=== PATIENT | male | born 1975 | race Hispanic/Latino ===

== ENCOUNTER 2018-11-22 20:37 | Emergency (ER) | payer SELFPAY ==
[2018-11-22] MEDS ORDERED: NA CHLORIDE 0.9% 1,000 ML ONE (22:15)
[2018-11-22] MEDS ORDERED: ONDANSETRON 4 MG/2 ML VIAL ONE (22:15)
[2018-11-22 22:24] LABS: Absolute Lymphocytes (CBC) 0.3 K/uL (0.7-4.9); Absolute Monocytes 0.6 K/uL (0.1-1.3); Basophils % 0.3 % (0-1.3); Hematocrit 43.6 % (39.6-49.0); Lymphocytes % 4.8 % (15.3-44.8); MPV 8.1 fL (7.6-11.3); Monocytes % 8.1 % (3.3-12.3); RBC Red Blood Cell Count 5.25 M/uL (4.33-5.43)
[2018-11-22] MEDS ORDERED: ACETAMINOPHEN 500 MG TAB ONE (23:23)
[2018-11-22 23:36] LABS: Albumin 4.1 g/dL (3.4-5.0); Bilirubin Direct 0.3 mg/dL (0-0.2); Bilirubin Total 0.8 mg/dL (0.2-1.0); Potassium 3.5 mmol/L (3.5-5.1); Protein, Total 8.1 g/dL (6.4-8.2)
[2018-11-22 23:46] LABS: Blood Morphology Comment NOT SEEN (NOT SEEN); Platelet Estimate ADEQ
--- NOTE | 2018-11-23 02:08 | ER ---
Nurse's Notes [facility] Unit Name: Gee Toure Age: 43 yrs Sex: Male : 1975 Arrival Date: 11/22/2018 Time: 20:42 Bed 8 Private MD: Diagnosis: Vomiting;Abnormal results of liver function studies Presentation: 11/22 20:44 Presenting complaint: Friend states: "he has been having a fever and puking and very jd3 nauseous and he says his hole body hurts all over.". Transition of care: patient was not received from another setting of care. Onset of symptoms was November 22, 2018. Risk Assessment: Do you want to hurt yourself or someone else? Patient reports no desire to harm self or others. Initial Sepsis Screen: Does the patient meet any 2 criteria? HR > 90 bpm. No. Patient's initial sepsis screen is negative. Does the patient have a suspected source of infection? No. Patient's initial sepsis screen is negative. Care prior to arrival: None. 20:44 Method Of Arrival: Ambulatory jd3 20:44 Acuity: FELICIA 3 jd3 Historical: - Allergies: 20:46 No Known Allergies; jd3 - Home Meds: 20:46 None [Active]; jd3 - PMHx: 20:46 None; jd3 - PSHx: 20:46 None; jd3 - Immunization history:: Adult Immunizations unknown. - Social history:: Smoking status: Patient/guardian denies using tobacco. - Ebola Screening: : Patient negative for fever greater than or equal to 101.5 degrees Fahrenheit, and additional compatible Ebola Virus Disease symptoms. Screenin:22 Abuse screen: Denies threats or abuse. Denies injuries from another. Nutritional ao screening: No deficits noted. Tuberculosis screening: No symptoms or risk factors identified. Fall Risk None identified. Assessment: 21:30 General: Appears in no apparent distress. comfortable, Behavior is calm, cooperative, ao appropriate for age. Pain: Complains of pain in abdomen. Neuro: Level of Consciousness is awake, alert, obeys commands, Oriented to person, place, time, situation, Appropriate for age Moves all extremities. Full function Speech is normal, Facial symmetry appears normal. Cardiovascular: Capillary refill < 3 seconds Patient's skin is warm and dry. Respiratory: Airway is patent Respiratory effort is even, unlabored, Respiratory pattern is regular, symmetrical. GI: Abdomen is non-distended. GI: Reports nausea, vomiting. : No signs and/or symptoms were reported regarding the genitourinary system. EENT: No signs and/or symptoms were reported regarding the EENT system. Derm: Skin is intact, Skin is pink, warm \\T\\ dry. normal, Skin temperature is warm. Musculoskeletal: Circulation, motion, and sensation intact. Range of motion:. 22:30 Reassessment: Patient appears in no apparent distress at this time. Patient and/or ao family updated on plan of care and expected duration. Pain level reassessed. Patient is alert, oriented x 3, equal unlabored respirations, skin warm/dry/pink. 23:14 Reassessment: Notified Dr Javier of unchanging temperature and receive an order for ao Tylenol 1 Gm. 11/23 00:28 Reassessment: Patient appears in no apparent distress at this time. Patient and/or ao family updated on plan of care and expected duration. Pain level reassessed. Patient under no distress. Waiting on Dispo orders. 01:51 Reassessment: Patient appears in no apparent distress at this time. No changes from jd3 previously documented assessment. Patient and/or family updated on plan of care and expected duration. Pain level reassessed. Patient is alert, oriented x 3, equal unlabored respirations, skin warm/dry/pink. 02:26 Reassessment: Patient DC home. Patient agree with POC and to follow up with PCP. ao Vital Signs: 11/22 20:47 BP 148 / 97; Pulse 140; Resp 18 S; Temp 100.4(O); Pulse Ox 97% on R/A; Weight 81.65 kg jd3 (R); Height 5 ft. 6 in. (167.64 cm) (R); Pain 8/10; 22:21 BP 136 / 102; Pulse 121; Resp 20; Pulse Ox 98% on R/A; Pain 0/10; ao 22:30 BP 140 / 92; Pulse 105; Resp 18; Temp 100.5(O); Pulse Ox 98% on R/A; Pain 0/10; ao 11/23 00:28 BP 132 / 84; Pulse 88; Resp 18; Temp 99.5; Pulse Ox 97% on R/A; Pain 0/10; ao 01:52 BP 126 / 86; Pulse 81; Resp 21 S; Pulse Ox 97% on R/A; jd3 11/22 20:47 Body Mass Index 29.05 (81.65 kg, 167.64 cm) jd3 ED Course: 11/22 20:42 Patient arrived in ED. es 20:45 Triage completed. jd3 20:48 Arm band placed on. jd3 21:52 Gutierrez Javier MD is Attending Physician. gs 22:02 Evans Metz RN is Primary Nurse. ao 22:18 Inserted saline lock: 20 gauge in right forearm, using aseptic technique. Blood oe collected. 22:22 Patient has correct armband on for positive identification. monitoring manager on. Pulse ao ox on. NIBP on. 22:34 Troponin (emerg Dept Use Only) Sent. mw2 22:56 XRAY CXR (1 view) In Process Unspecified. [facility] 11/23 02:07 Dave Werner MD is Referral Physician. 02:25 No provider procedures requiring assistance completed. IV discontinued, intact, ao bleeding controlled, No redness/swelling at site. Pressure dressing applied. Administered Medications: 11/22 22:22 Drug: NS 0.9% 1000 ml Route: IV; Rate: 1 bolus; Site: right forearm; ao 11/23 00:00 Follow up: IV Status: Completed infusion; IV Intake: 1000ml ao 11/22 22:23 Drug: Zofran 4 mg Route: IVP; Site: right forearm; ao 11/23 03:42 Follow up: Response: No adverse reaction ao 11/22 23:16 Drug: Tylenol 1000 mg Route: PO; ao 11/23 03:42 Follow up: Response: No adverse reaction ao Intake: 00:00 IV: 1000ml; Total: 1000ml. ao Outcome: 02:07 Discharge ordered by . 02:26 Discharged to home ambulatory. ao 02:26 Condition: stable 02:26 Discharge instructions given to patient, Instructed on discharge instructions, follow up and referral plans. Demonstrated understanding of instructions, follow-up care, medications, Prescriptions given X 2. 02:26 Patient left the ED. ao Signatures: Dispatcher [employer] [facility] Temi Banuelos Alex, RN RN ao Maximilian Ferguson Gregory, MD MD gs Davies, Jonathon, RN RN jd3 Dot, Casie mw2 Corrections: (The following items were deleted from the chart) 11/22 20:47 20:44 Initial Sepsis Screen: Does the patient meet any 2 criteria? No. Patient's jd3 initial sepsis screen is negative. Does the patient have a suspected source of infection? No. Patient's initial sepsis screen is negative. jd3 20:47 20:44 Acuity: FELICIA 3 jd3 jd3 :47 20:44 Acuity: FELICIA 2 jd3 jd3
--- NOTE | 2018-11-23 02:08 | EDPHYS ---
Physician Documentation [facility] Name: Gee Toure Age: 43 yrs Sex: Male : 1975 Arrival Date: 11/22/2018 Time: 20:42 Bed 8 Private MD: ED Physician Gutierrez Javier HPI: 11/23 05:03 This 43 yrs old Male presents to ER via Ambulatory with complaints of fever gs Vomiting. 05:03 Onset: The symptoms/episode began/occurred yesterday. Modifying factors: there are no gs obvious modifying factors. Associated signs and symptoms: Pertinent positives: arthralgias, chills, myalgias, Pertinent negatives: abdominal pain, backache, chest pain, night sweats. Severity of symptoms: At their worst the symptoms were severe in the emergency department the symptoms have improved moderately. The patient has not experienced similar symptoms in the past. Historical: - Allergies: 11/22 20:46 No Known Allergies; jd3 - Home Meds: 20:46 None [Active]; jd3 - PMHx: 20:46 None; jd3 - PSHx: 20:46 None; jd3 - Immunization history:: Adult Immunizations unknown. - Social history:: Smoking status: Patient/guardian denies using tobacco. - Ebola Screening: : Patient negative for fever greater than or equal to 101.5 degrees Fahrenheit, and additional compatible Ebola Virus Disease symptoms. ROS: 11/23 05:03 All other systems are negative. gs Exam: 05:03 Head/Face: Normocephalic, atraumatic. Eyes: Pupils equal round and reactive to light, gs extra-ocular motions intact. Lids and lashes normal. Conjunctiva and sclera are non-icteric and not injected. Cornea within normal limits. Periorbital areas with no swelling, redness, or edema. ENT: Nares patent. No nasal discharge, no septal abnormalities noted. Tympanic membranes are normal and external auditory canals are clear. Oropharynx with no redness, swelling, or masses, exudates, or evidence of obstruction, uvula midline. Mucous membranes moist. Neck: Trachea midline, no thyromegaly or masses palpated, and no cervical lymphadenopathy. Supple, full range of motion without nuchal rigidity, or vertebral point tenderness. No Meningismus. Chest/axilla: Normal chest wall appearance and motion. Nontender with no deformity. No lesions are appreciated. Respiratory: Lungs have equal breath sounds bilaterally, clear to auscultation and percussion. No rales, rhonchi or wheezes noted. No increased work of breathing, no retractions or nasal flaring. Abdomen/GI: Soft, non-tender, with normal bowel sounds. No distension or tympany. No guarding or rebound. No evidence of tenderness throughout. Back: No spinal tenderness. No costovertebral tenderness. Full range of motion. Skin: Warm, dry with normal turgor. Normal color with no rashes, no lesions, and no evidence of cellulitis. MS/ Extremity: Pulses equal, no cyanosis. Neurovascular intact. Full, normal range of motion. Neuro: Awake and alert, GCS 15, oriented to person, place, time, and situation. Cranial nerves II-XII grossly intact. Motor strength 5/5 in all extremities. Sensory grossly intact. Cerebellar exam normal. Normal gait. 05:03 Constitutional: The patient appears alert, awake. 05:03 Cardiovascular: Rate: tachycardic, Rhythm: regular, Pulses: no pulse deficits are appreciated, Heart sounds: normal. 05:03 ECG was reviewed by the Attending Physician. Vital Signs: 11/22 20:47 BP 148 / 97; Pulse 140; Resp 18 S; Temp 100.4(O); Pulse Ox 97% on R/A; Weight 81.65 kg jd3 (R); Height 5 ft. 6 in. (167.64 cm) (R); Pain 8/10; 22:21 BP 136 / 102; Pulse 121; Resp 20; Pulse Ox 98% on R/A; Pain 0/10; ao 22:30 BP 140 / 92; Pulse 105; Resp 18; Temp 100.5(O); Pulse Ox 98% on R/A; Pain 0/10; ao 11/23 00:28 BP 132 / 84; Pulse 88; Resp 18; Temp 99.5; Pulse Ox 97% on R/A; Pain 0/10; ao 01:52 BP 126 / 86; Pulse 81; Resp 21 S; Pulse Ox 97% on R/A; jd3 11/22 20:47 Body Mass Index 29.05 (81.65 kg, 167.64 cm) j MDM: 11/22 22:26 Patient medically screened. gs 11/23 05:03 Differential diagnosis: viral Infection, bacterial infection, pneumonia. Data reviewed: vital signs, nurses notes. Counseling: I had a detailed discussion with the patient and/or guardian regarding: the historical points, exam findings, and any diagnostic results supporting the discharge/admit diagnosis, lab results, radiology results, the need for outpatient follow up. Response to treatment: the patient's symptoms have markedly improved after treatment, the patient's condition has returned to base line, and as a result, I will discharge patient. 11/22 21:59 Order name: Basic Metabolic Panel; Complete Time: 00:16 11/22 21:59 Order name: CBC with Diff; Complete Time: 00:16 11/22 21:59 Order name: Hepatic Function; Complete Time: 00:16 11/22 21:59 Order name: Lipase; Complete Time: 00:16 11/22 21:59 Order name: Flu; Complete Time: 00:16 11/22 21:59 Order name: IV Saline Lock; Complete Time: 22:23 11/22 22:24 Order name: Creatine Phosphokinase; Complete Time: 00:16 [facility] 11/22 22:25 Order name: Manual Differential; Complete Time: 00:16 [facility] 11/22 22:29 Order name: Troponin (emerg Dept Use Only); Complete Time: 00:16 11/22 22:29 Order name: XRAY CXR (1 view) 11/22 21:59 Order name: Labs collected and sent; Complete Time: 22:23 11/22 22:29 Order name: EKG - Nurse/Tech; Complete Time: 22:34 EC:03 Rate is 110 beats/min. Rhythm is regular, Sinus tachycardia. AK interval is normal. QRS gs interval is normal. QT interval is normal. T waves are Normal. No ST changes noted. Clinical impression: Abnormal EKG without significant change. Interpreted by me. Administered Medications: 11/22 22:22 Drug: NS 0.9% 1000 ml Route: IV; Rate: 1 bolus; Site: right forearm; ao 11/23 00:00 Follow up: IV Status: Completed infusion; IV Intake: 1000ml ao 11/22 22:23 Drug: Zofran 4 mg Route: IVP; Site: right forearm; ao 11/23 03:42 Follow up: Response: No adverse reaction ao 11/22 23:16 Drug: Tylenol 1000 mg Route: PO; ao 11/23 03:42 Follow up: Response: No adverse reaction ao Disposition: 11/23/18 02:07 Discharged to Home. Impression: Vomiting, Abnormal results of liver function studies. - Condition is Stable. - Discharge Instructions: Fever, Adult, Nausea and Vomiting, Adult. - Prescriptions for Zofran 4 mg Oral Tablet - take 1 tablet by ORAL route every 12 hours As needed; 10 tablet. Pepcid 20 mg Oral Tablet - take 1 tablet by ORAL route once daily; 20 tablet. - Medication Reconciliation Form, Thank You Letter, Antibiotic Education, Prescription Opioid Use form. - Follow up: Private Physician; When: 2 - 3 days; Reason: Re-evaluation by your physician. Follow up: Dave Werner MD; When: 2 - 3 days; Reason: Re-evaluation by your physician. Signatures: Dispatcher [employer] [facility] Evans Metz RN RN ao Starr, Gregory, MD MD gs Davies, Jonathon, RN RN jd3 Corrections: (The following items were deleted from the chart) 11/22 22:24 22:17 CREATINE PHOSPHOKINASE+C.LAB.BRZ ordered. [facility] 11/23 02:26 02:07 11/23/2018 02:07 Discharged to Home. Impression: Vomiting; Abnormal results of ao liver function studies. Condition is Stable. Forms are Medication Reconciliation Form, Thank You Letter, Antibiotic Education, Prescription Opioid Use. Follow up: Private Physician; When: 2 - 3 days; Reason: Re-evaluation by your physician. Follow up: Dave Werner; When: 2 - 3 days; Reason: Re-evaluation by your physician. luca
--- NOTE | 2018-11-23 09:28 | RAD REPORT ---
EXAM DESCRIPTION: RAD - Chest Single View - 11/22/2018 10:56 pm CLINICAL HISTORY: Cough, fever COMPARISON: None. TECHNIQUE: AP portable chest image was obtained 2254 hours . FINDINGS: Lung volumes are low. No peripheral mass or consolidation. Failure is not suspected. Heart and vasculature are normal. No measurable pleural effusion and no pneumothorax. No acute bony abnorm ality seen. No acute aortic findings suspected. IMPRESSION: No acute cardiopulmonary process.
--- NOTE | 2018-11-24 21:47 | EKG ---
Test Date: 2018-11-22 Test Time: 22:37:00 Infrastructure Design Engineer: [employer] MEASUREMENT RESULTS: Intervals: Rate: 110 UT: 164 QRSD: 90 QT: 322 QTc: 435 [place]: P: 39 UT: 164 QRS: -16 T: 39 INTERPRETIVE STATEMENTS: Sinus tachycardia Otherwise normal ECG No previous ECG available for comparison Electronically Signed On 11-24-18 21:46:53 CDT by Drake Thomas
== END 2018-11-23 02:26 | disposition home or self-care (01) ==
LOC: ER 20:37
DX: R94.5 Abnormal results of liver function studies (principal)
CPT/HCPCS: 36415; 71045; 80048; 80076; 82550; 83690; 84484; 85025; 87804; 93005; 96361; 96374; 99284; J2405; J7030